=== PATIENT | female | born 1940 | race Caucasian/White ===

== ENCOUNTER 2020-05-06 10:17 | Outpatient (CLI) | payer MEDICARE, SELFPAY ==
[2020-05-06 10:52] LABS: Basophils Percent Auto 0.6 % (0.2-1.2); Eosinophils Absolute Auto 0.2 K/mm3 (0-0.3); Eosinophils Percent Auto 3.8 % (0-4.4); Hemoglobin 14.1 g/dL (12.0-15.0); Immature Granulocyte Absolute 0.01 K/mm3 (0.00-0.031); Immature Granulocyte Percent A 0.2 % (0-0.5); Lymphocytes Absolute Auto 1.48 K/mm3 (0.9-3.2); Lymphocytes Percent Auto 23.7 % (18.3-44.2); Mean Corpuscular HGB Conc 32.8 g/dl (32-36); Mean Corpuscular Hemoglobin 32.3 pg (26-34); Mean Corpuscular Volume 98.6 fl (80-100); Mean Platelet Volume 10.8 fl (7.4-10.4); Monocytes Absolute Auto 0.6 K/mm3 (0.1-0.6); Monocytes Percent Auto 8.8 % (2.6-8.5); Neutrophils Absolute Auto 3.9 K/mm3 (1.3-6.7); Neutrophils Percent Auto 62.9 % (45.5-73.1); Platelet Count Result 193 k/mm3 (150-375); Red Blood Count 4.36 M/mm3 (4.2-5.4); Red Cell Distribution Width 12.7 % (11.5-14.5); White Blood Count 6.2 K/mm3 (4.5-10.0)
[2020-05-06 11:02] LABS: Add Urine Microscopic? YES; Appearance Urine Cloudy (Clear); Bacteria Urine Trace /hpf; Bilirubin Urine Negative (Negative); Blood Urine 1+ (Negative); Color Urine Yellow (Yellow); Glucose Urine UA Negative (Negative); Ketones Urine Negative (Negative); Leukocyte Esterase Ur 2+ LEU/UL (NEGATIVE); Nitrate Urine Negative (Negative); Protein Urine Negative (Negative); RBC Urine 0-2 /hpf (0-2); Specific Grav Ur 1.018 (1.001-1.035); Squamous Epithelial Cell Urine Many /hpf (Few); Urobilinogen Urine Negative mg/dL (<2.0)
[2020-05-06 11:03] LABS: Hemoglobin A1C 5.6 % (<5.7)
[2020-05-06 11:04] LABS: Alanine Aminotransferase 22 U/L (4-35); Alkaline Phosphatase 84 U/L (38-126); Anion Gap 5 mmol/L (8-16); Aspartate Amino Transferase 26 U/L (14-36); Bilirubin,Total 0.4 mg/dL (0.2-1.3); Blood Urea Nitrogen 18 mg/dL (7-17); Calcium 9.1 mg/dL (8.4-10.2); Carbon Dioxide 28 mmol/L (22-30); Chloride 106 mmol/L (98-107); Cholesterol 153 mg/dL (0-200); Estimated Glomerular Filt Rate 54; Glucose 92 mg/dL (65-105); HDL Direct 43 mg/dL; Potassium 4.3 mmol/L (3.4-5.0); Sodium 139 mmol/L (137-145); Triglycerides 124 mg/dL (<150)
[2020-05-06 11:15] LABS: LDL Cholesterol Direct 72 mg/dL
[2020-05-06 11:50] LABS: Vitamin D 25 Hydroxy 41.9 ng/mL
== END 2020-05-06 10:18 | disposition home or self-care (01) ==
LOC: ANHLAB 10:25
PROVIDERS: PCP Internal Medicine; Visit Provider Internal Medicine
DX: E55.9 Vitamin D deficiency, unspecified (principal); E78.2 Mixed hyperlipidemia; R73.03 Prediabetes; Z79.899 Other long term (current) drug therapy; Z78.0 Asymptomatic menopausal state
CPT/HCPCS: 36415; 80053; 80061; 81001; 82306; 83036; 84443; 85025

== ENCOUNTER 2020-05-12 08:43 | Outpatient (CLI) | payer MEDICARE, SELFPAY ==
[2020-05-12 09:11] LABS: Add Urine Microscopic? YES; Appearance Urine Clear (Clear); Bacteria Urine Trace /hpf; Bilirubin Urine Negative (Negative); Blood Urine 1+ (Negative); Color Urine Yellow (Yellow); Glucose Urine UA Negative (Negative); Ketones Urine Negative (Negative); Leukocyte Esterase Ur Trace LEU/UL (Negative); Mucus Urine Rare /lpf; Nitrate Urine Negative (Negative); Protein Urine Negative (Negative); RBC Urine 0-2 /hpf (0-2); Specific Grav Ur 1.019 (1.001-1.035); Squamous Epithelial Cell Urine Many /hpf (Few); Urobilinogen Urine Negative mg/dL (<2.0)
== END 2020-05-12 08:44 | disposition home or self-care (01) ==
LOC: ANHLAB 08:45
PROVIDERS: PCP Internal Medicine; Visit Provider Internal Medicine
DX: R31.29 Other microscopic hematuria (principal)
CPT/HCPCS: 81001; 87086; 87088

== ENCOUNTER 2020-05-17 13:50 | Outpatient (CLI) | payer MEDICARE, SELFPAY ==
[2020-05-17 14:44] LABS: Add Urine Microscopic? YES; Appearance Urine Clear (Clear); Bacteria Urine Trace /hpf; Bilirubin Urine Negative (Negative); Blood Urine Negative (Negative); Color Urine Yellow (Yellow); Glucose Urine UA Negative (Negative); Ketones Urine Negative (Negative); Leukocyte Esterase Ur Trace LEU/UL (NEGATIVE); Mucus Urine Rare /lpf; Nitrate Urine Negative (Negative); Protein Urine Negative (Negative); Specific Grav Ur 1.027 (1.001-1.035); Squamous Epithelial Cell Urine Many /hpf (Few); Urobilinogen Urine Negative mg/dL (<2.0)
== END 2020-05-17 13:51 | disposition home or self-care (01) ==
LOC: ANHLAB 13:53
PROVIDERS: PCP Internal Medicine; Visit Provider Internal Medicine
DX: R31.29 Other microscopic hematuria (principal)
CPT/HCPCS: 81001

== ENCOUNTER 2020-07-21 08:18 | Outpatient (CLI) | payer MEDICARE, SELFPAY ==
--- NOTE | ~2020-07-21 | MM_ITS ---
EXAMINATION: MM screening davis BI w cherelle HISTORY: Screening mammogram TECHNIQUE: Craniocaudal and mediolateral oblique 3-D tomosynthesis images were obtained and synthetic 2-D images were generated. CAD analysis was submitted and interpreted. COMPARISON: 04/24/2019, 03/12/2018 bilateral digital screening mammogram examinations BREAST PARENCHYMAL COMPOSITION: There are scattered areas of fibroglandular density. FINDINGS: There are scattered occasional benign calcifications. A new 5 mm spiculated opacity is suggested posteriorly in the lower inner left breast (craniocaudal T omosynthesis image 23/70); diagnostic left mammogram is recommended, with ultrasound if appropriate. Otherwise there is no evidence of suspicious mass, calcification, or architectural distortion to sugg est malignancy in either breast. There has been no other suspicious interval change. IMPRESSION: 1. Suggestion of new 5 mm asymmetric spiculated opacity in posterior lower inner left breast 2. Diagnostic left mammogram is recommended, with ultrasound if required BI-RADS Category 0: Incomplete: Needs additional imaging evaluation. Reviewed, dictated and finalized at location A. [employer] IMPRESSION: 1. Suggestion of new 5 mm asymmetric spiculated opacity in posterior lower inne r left breast 2. Diagnostic left mammogram is recommended, with ultrasound if required BI-RADS Category 0: Incomplete: Needs additional imaging evaluation.
== END 2020-07-21 08:19 | disposition home or self-care (01) ==
LOC: ANHIMG 08:22
PROVIDERS: PCP Internal Medicine; Visit Provider Internal Medicine
DX: Z12.31 Encounter for screening mammogram for malignant neoplasm of breast (principal); R92.8 Other abnormal and inconclusive findings on diagnostic imaging of breast
CPT/HCPCS: 77063; 77067

== ENCOUNTER 2020-09-14 11:28 | Outpatient (CLI) | payer MEDICARE, SELFPAY ==
--- NOTE | ~2020-09-14 | MMUS_ITS ---
EXAMINATION: MM diagnostic mammo unilat LT, US breast LT limited HISTORY: Follow-up possible spiculated left breast mass TECHNIQUE: Additional 3-D tomosynthesis images of the left breast were performed and synthetic 2-D im ages were generated. CAD analysis was submitted and interpreted. High resolution Limited left breast ultrasound was performed. COMPARISON: 07/21/2020 BREAST PARENCHYMAL COMPOSITION: Breast composed of scattered areas of fibroglandular density. FINDINGS: MAMMOGRAPHIC FINDINGS: There are no suspicious masses, calcifications or architectural distortion in the left breast to sugg est malignancy. ULTRASOUND: Limited ultrasound of the lower inner quadrant of the left breast: At 9:00, 3 cm from the nipple, the re is an oval hypoechoic mass measuring 4 mm without significant posterior features or internal vascu larity. IMPRESSION: 1. Probable benign 4 mm left breast mass at 9:00, 3 cm from the nipple identified by ultrasound. 2. Recommend 6 month follow-up left breast ultrasound BI-RADS category 3, probably benign findings. Reviewed, dictated and finalized at location A. [employer] IMPRESSION: 1. Probable benign 4 mm left breast mass at 9:00, 3 cm from the nipple identifi ed by ultrasound. 2. Recommend 6 month follow-up left breast ultrasound BI-RADS category 3, probably benign findings.
== END 2020-09-14 11:29 | disposition home or self-care (01) ==
LOC: ANHIMG 11:28
PROVIDERS: PCP Internal Medicine; Visit Provider Internal Medicine
DX: R92.8 Other abnormal and inconclusive findings on diagnostic imaging of breast (principal)
CPT/HCPCS: 76642; 77065

== ENCOUNTER 2021-03-15 11:38 | Outpatient (CLI) | payer MEDICARE, SELFPAY ==
--- NOTE | ~2021-03-15 | MMUS_ITS ---
EXAMINATION: MM diagnostic davis LT w cherelle, US breast LT limited HISTORY: Six-month follow-up of probable benign 4 mm left breast mass at 9:00 TECHNIQUE: ML, MLO and craniocaudal full field and spot 3-D tomosynthesis images of the left breast w ere performed and synthetic 2-D images were generated. CAD analysis was submitted and interpreted. Hi gh resolution targeted 9:00 left breast ultrasound was performed. COMPARISON: 09/14/2020 diagnostic left mammogram and limited left breast ultrasound 07/21/2020 bilateral digital screening mammogram BREAST PARENCHYMAL COMPOSITION: There are scattered areas of fibroglandular density. FINDINGS: MAMMOGRAPHIC FINDINGS: No suspicious mass, architectural distortion, malignant calcification, skin thickening or retraction or significant new or developing density of the left breast is evident. There is minimal benign calci fication. ULTRASOUND: There is diminished size of the previously reported 9:00 lesion, previously measuring 4 mm, currently 2.7 x 2.5 x 2 mm. The lesion is sonolucent. No internal vascularity or suspicious shadowing. IMPRESSION: 1. No mammographic evidence of malignancy 2. Routine mammographic screening is recommended BI-RADS Category 2: Benign finding(s). Reviewed, dictated and finalized at location A. IMPRESSION: 1. No mammographic evidence of malignancy 2. Routine mammographic screening is recommended BI-RADS Category 2: Benign finding(s).
== END 2021-03-15 11:39 | disposition home or self-care (01) ==
LOC: ANHIMG 11:40
PROVIDERS: PCP Internal Medicine; Visit Provider Internal Medicine
DX: N63.25 Unspecified lump in the left breast, overlapping quadrants (principal)
CPT/HCPCS: 76642; 77061; 77065; G0279

== ENCOUNTER 2021-05-04 08:22 | Outpatient (CLI) | payer MEDICARE, SELFPAY ==
[2021-05-04 08:43] LABS: Basophils Percent Auto 0.7 % (0.2-1.2); Eosinophils Absolute Auto 0.1 K/mm3 (0-0.3); Eosinophils Percent Auto 1.7 % (0-4.4); Hematocrit 43.2 % (37.0-47.0); Hemoglobin 13.6 g/dL (12.0-15.0); Immature Granulocyte Absolute 0.01 K/mm3 (0.00-0.031); Immature Granulocyte Percent A 0.2 % (0-0.5); Lymphocytes Absolute Auto 1.85 K/mm3 (0.9-3.2); Lymphocytes Percent Auto 31.9 % (18.3-44.2); Mean Corpuscular HGB Conc 31.5 g/dl (32-36); Mean Corpuscular Hemoglobin 31.9 pg (26-34); Mean Corpuscular Volume 101.2 fl (80-100); Mean Platelet Volume 10.7 fl (7.4-10.4); Monocytes Absolute Auto 0.7 K/mm3 (0.1-0.6); Monocytes Percent Auto 11.2 % (2.6-8.5); Neutrophils Absolute Auto 3.2 K/mm3 (1.3-6.7); Neutrophils Percent Auto 54.3 % (45.5-73.1); Platelet Count Result 200 k/mm3 (150-375); Red Blood Count 4.27 M/mm3 (4.2-5.4); Red Cell Distribution Width 13.1 % (11.5-14.5); White Blood Count 5.8 K/mm3 (4.5-10.0)
[2021-05-04 09:00] LABS: Alanine Aminotransferase 19 U/L (4-35); Albumin Level 4.1 g/dL (3.5-5.1); Alkaline Phosphatase 72 U/L (38-126); Anion Gap 6 mmol/L (8-16); Aspartate Amino Transferase 27 U/L (14-36); Bilirubin,Total 0.7 mg/dL (0.2-1.3); Blood Urea Nitrogen 22 mg/dL (7-17); Calcium 9.3 mg/dL (8.4-10.2); Carbon Dioxide 29 mmol/L (22-30); Chloride 107 mmol/L (98-107); Cholesterol 148 mg/dL (0-200); Estimated Glomerular Filt Rate 48; Glucose 103 mg/dL (65-110); HDL Direct 49 mg/dL; Potassium 4.1 mmol/L (3.4-5.0); Sodium 142 mmol/L (137-145); Triglycerides 85 mg/dL (<150)
[2021-05-04 09:11] LABS: LDL Cholesterol Direct 69 mg/dL
[2021-05-04 10:34] LABS: Vitamin D 25 Hydroxy 41.5 ng/mL
[2021-05-04 10:43] LABS: Creatinine Urine 297.1 mg/dL
[2021-05-04 10:46] LABS: MALB Creatinine Ratio 5.1 mg/g (0-30); Microalbumin Urine Random 15.3 mg/L (0-16.7)
== END 2021-05-04 08:23 | disposition home or self-care (01) ==
LOC: ANHLAB 08:26
PROVIDERS: PCP Internal Medicine; Visit Provider Internal Medicine
DX: R73.03 Prediabetes (principal); E78.2 Mixed hyperlipidemia; E55.9 Vitamin D deficiency, unspecified
CPT/HCPCS: 36415; 80053; 80061; 82043; 82306; 84443; 85025

== ENCOUNTER 2021-07-20 01:02 | Day surgery (SDC) | payer MEDICARE, SELFPAY ==
[2021-07-01 14:14] VITALS: BMI 33.4
--- NOTE | 2021-07-20 07:22 | P.PNAN_ITS ---
Anes - Initial Pre Proc Eval Procedure: Operation Date: 07/20/21 09:15 Proposed Procedures p Screening Colonoscopy - Alex Parmar MD Date/Time: 07/20/21 07:22 Surgeon: Alex Parmar MD Pre Op Diagnosis: neoplasm screening Patient Data Age: 81 Gender: F Height: 1.68 m Weight: 94 kg Allergies Allergy/AdvReac Type Severity Reaction Status Date / Time bacitracin Allergy Mild RASH AND Verified 07/20/21 07:53 ITCHING gramicidin D Allergy Mild RASH AND Verified 07/20/21 07:53 ITCHING neomycin Allergy Mild RASH AND Verified 07/20/21 07:53 ITCHING polymyxin B Allergy Mild RASH AND Verified 07/20/21 07:53 ITCHING adhesive Allergy Unknown RASH Verified 07/20/21 07:53 latex Allergy Unknown Rash Verified 07/20/21 07:53 Home Medications Medication Instructions Recorded Confirmed Type aspirin 81 mg tablet,delayed 81 mg PO DAILY 06/30/19 07/01/21 History release atorvastatin 10 mg tablet 10 mg PO DAILY #90 tablet 03/14/21 07/01/21 Rx Patient hx anesthesia problems: none Family hx anesthesia problems: none Results Review: All pre-operative results and documents have been reviewed as part of the pre-operative evaluation. [facility] Past Medical History Medical History (Updated 07/20/21 @ 07:24 by Francisco Ruvalcaba DO) Mixed hyperlipidemia PONV (postoperative nausea and vomiting) Surgical History Surgical History (Updated 07/20/21 @ 07:24 by Francisco Ruvalcaba DO) History of appendectomy History of hysterectomy Family History Family History (Updated 08/30/16 @ 09:37 by DOCTOR UNKNOWN) Mother Patient's mother is in good health, Onset Age: 100 Father Patient's father is in good health, Onset Age: 85 Social History Social History (Updated 05/13/21 @ 07:48 by RAMIRO Pink) Smoking packs per day: 0.50 Smoking cigarettes per day: 10.0 Years smoked: 2 Smoking pack-years: 1.00 Smoking status: Never smoker Second hand tobacco smoke exposure: Yes Smoking end date: 08/20/1964 Alcohol intake: current Alcohol use details: socially Substance use: never Substance use type: does not use Anes - Eval Final PreProcedure Day of Procedure 07/20/21 07:22 Patient weight: obese Heart: regular rate and rhythm Lungs: clear to auscultation and normal air movement Airway: Mallampati scale class II Neurological: alert and oriented Last oral intake: >/= 8 hours ASA classification: II Emergent: no Anesthetic plan: proceed Anesthesia type and monitoring: general GIVS and standard monitoring Results Review: All pre-operative results and documents have been reviewed as part of the pre-operative evaluation. Informed Consent: The patient's anesthetic plan and its attendant risks and benefits were discussed with the patient/family/POA. Questions were solicited and answers provided to the satisfaction of the patient/family/POA.
[2021-07-20 07:54] VITALS: BP 139/72; PULSE 74; RESP 18; TEMP 36.4; O2SAT 97
[2021-07-20] MEDS: LACTATED RINGERS 1,000 ML 150 ML IV CONT (08:12)
--- NOTE | 2021-07-20 08:50 | PM.HPGS ---
History of Present Illness History of Present Illness Consent: Risks, benefits, and alternatives have been discussed and questions answered. Patient agrees to proceed with procedure. Chief complaint: neoplasm screening Narrative: Maggy Story is a 81 year old female here for screening colonoscopy, last one 2010 Review of Systems Constitutional: Constitutional: Denies headache(s) and Denies weakness Eyes: Eyes: Denies blurry vision ENT: Reports Normal hearing present, Denies headache(s) and Denies neck pain Cardiovascular: Cardiovascular: Denies chest pain and Denies dyspnea Respiratory: Respiratory: Denies dyspnea Gastrointestinal: Gastrointestinal: Reports no additional gastrointestinal complaints Genitourinary: Genitourinary: Denies dysuria Musculoskeletal: Musculoskeletal: Denies neck pain Integumentary/Breasts: Skin/Breast: Denies dry skin Neurologic: Reports Normal hearing present, Denies headache(s) and Denies weakness Psychiatric: Psychiatric: Denies anxiety Endocrine: Endocrine: Denies change in body appearance Hematologic/Lymphatic: Hematologic/Lymphatic: Denies easy bleeding Allergic/Immunologic: Allergic/Immunologic: Denies urticaria PMFSH Past Medical History Medical History (Updated 07/20/21 @ 07:24 by Francisco Ruvalcaba DO) Mixed hyperlipidemia PONV (postoperative nausea and vomiting) Surgical History Surgical History (Updated 07/20/21 @ 07:24 by Francisco Ruvalcaba DO) History of appendectomy History of hysterectomy Family History Family History (Updated 08/30/16 @ 09:37 by DOCTOR UNKNOWN) Mother Patient's mother is in good health, Onset Age: 100 Father Patient's father is in good health, Onset Age: 85 Social History Social History (Updated 05/13/21 @ 07:48 by Erica Aguirre [facility]) Smoking packs per day: 0.50 Smoking cigarettes per day: 10.0 Years smoked: 2 Smoking pack-years: 1.00 Smoking status: Never smoker Second hand tobacco smoke exposure: Yes Smoking end date: 08/20/1964 Alcohol intake: current Alcohol use details: socially Substance use: never Substance use type: does not use Meds Home Medications and Allergies Home Medications Medication Instructions Recorded Confirmed Type aspirin 81 mg tablet,delayed 81 mg PO DAILY 06/30/19 07/01/21 History release atorvastatin 10 mg tablet 10 mg PO DAILY #90 tablet 03/14/21 07/01/21 Rx Allergies Allergy/AdvReac Type Severity Reaction Status Date / Time bacitracin Allergy Mild RASH AND Verified 07/20/21 07:53 ITCHING gramicidin D Allergy Mild RASH AND Verified 07/20/21 07:53 ITCHING neomycin Allergy Mild RASH AND Verified 07/20/21 07:53 ITCHING polymyxin B Allergy Mild RASH AND Verified 07/20/21 07:53 ITCHING adhesive Allergy Unknown RASH Verified 07/20/21 07:53 latex Allergy Unknown Rash Verified 07/20/21 07:53 Vital Signs Vital Signs - 24 hr 07/20/21 07:54 Temperature 97.6 F Pulse Rate 74 Respiratory Rate 18 Blood Pressure 139/72 Pulse Oximetry 97 Exam Const: General: comfortable and no acute distress HENMT: General nose exam: Normal nares present Eyes: General: appearance normal, both eyes and all related structures Neck: Neck: no JVD Resp: Auscultation: clear to auscultation bilaterally Cardio: Rate: regular rate Rhythm: regular rhythm GI: Inspection: non-distended GI Palp: Yes Soft to palpation Skin: General skin exam: normal color Neuro: General: gait normal Speech: normal speech Extrem: General: normal to inspection Psych: Mental Status: mental status grossly normal Assessment and Plan Assessment and plan (1) Encounter for screening colonoscopy: Code(s): Z12.11 - Encounter for screening for malignant neoplasm of colon Status: Acute Assessment and Plan: colonoscopy
[2021-07-20 09:08] VITALS: BP 95/44; PULSE 64; RESP 16; O2SAT 97
[2021-07-20 09:18] VITALS: BP 115/57; PULSE 66; RESP 17; O2SAT 99
[2021-07-20 09:28] VITALS: BP 110/61; PULSE 59; RESP 17; O2SAT 100
== END 2021-07-20 09:44 | disposition home or self-care (01) ==
PROVIDERS: PCP Internal Medicine; Visit Provider Internal Medicine Gastroenterology
PROC: 0DJD8ZZ Inspection of Lower Intestinal Tract, Via Natural or Artificial Opening Endoscopic (ICD-10-PCS; CPT 45378; principal; 2021-07-20 09:15)
DX: Z12.11 Encounter for screening for malignant neoplasm of colon (principal); E78.2 Mixed hyperlipidemia; Z79.82 Long term (current) use of aspirin; E66.9 Obesity, unspecified; Z68.33 Body mass index [BMI] 33.0-33.9, adult; Z87.891 Personal history of nicotine dependence
CPT/HCPCS: G0121; J2704; J7120

== ENCOUNTER 2022-06-12 09:08 | Outpatient (CLI) | payer MEDICARE, SELFPAY ==
--- NOTE | 2022-06-12 | ECG_ITS ---
Measurements Intervals [place] Rate: 61 P: 66 DE: 221 QRS: -27 QRSD: 116 T: 19 QT: 401 QTc: 406 Interpretive Statements SINUS RHYTHM WITH FIRST DEGREE AV BLOCK INFERIOR MYOCARDIAL INFARCTION , PROBABLY OLD BASELINE ARTIFACT ABNORMAL ECG NO PREVIOUS ECG AVAILABLE FOR COMPARISON Electronically Signed On 06-12-2022 16:11:30 CDT by Norris Tee M.D.
[2022-06-12 10:11] LABS: Anion Gap 9 mmol/L (8-16); Blood Urea Nitrogen 25 mg/dL (7-17); Calcium 9.2 mg/dL (8.4-10.2); Carbon Dioxide 28 mmol/L (22-30); Chloride 104 mmol/L (98-107); Estimated Glomerular Filt Rate 48; Glucose 104 mg/dL (65-110); Potassium 4.3 mmol/L (3.4-5.0); Sodium 141 mmol/L (137-145)
== END 2022-06-12 09:09 | disposition home or self-care (01) ==
PROVIDERS: Visit Provider Orthopaedic Surgery
DX: Z01.818 Encounter for other preprocedural examination (principal); R94.31 Abnormal electrocardiogram [ECG] [EKG]
CPT/HCPCS: 36415; 80048; 93005

== ENCOUNTER 2023-11-06 11:57 | Emergency (ER) | payer MEDICARE, SELFPAY ==
[2023-11-06] VITALS (24 sets, daily range): BP systolic 113–169; BP diastolic 58–90; PULSE 56–80; RESP 10–21; TEMP 36.3–36.6; O2SAT 94–100
--- NOTE | ~2023-11-06 | CT_ITS ---
EXAMINATION: CTA chest PE protocol DATE: 11/06/2023 13:23 INDICATION: Dyspnea on exertion. Cough. Dizziness. Elevated d-dimer. TECHNIQUE: Computed tomography angiography (CTA) of the chest was performed with 100 mL Omnipaque-350 intravenous contrast timed to evaluate the pulmonary arteries. Coronal maximum intensity projection 3D-reconstructions were created by the technologist. Automated exposure control and iterative reconst ruction technique were employed. Exam dose: 287.56 mGy-cm total exam DLP. COMPARISON: 11/06/2023 portable AP chest FINDINGS: There is diagnostic contrast enhancement of the pulmonary arteries and no evidence of pulmo nary embolism. No thoracic aortic aneurysm or dissection is evident. Heart size is within normal range. No pericardial or pleural effusion. No hilar or mediastinal mass lesion or lymphadenopathy. Occasional scattered focal areas of peripheral honeycombing are noted in the lungs. Minimal discoid a telectasis or scarring at the base of the right lower lobe posteromedially. Right lower lobe calcifie d pulmonary granuloma. No pulmonary infiltrate or consolidation or suspicious pulmonary mass lesion is noted. Normal morphology of the adrenal glands. Small sliding hiatal hernia. Degenerative changes of the lower cervical, thoracic and upper lumbar and included spine. IMPRESSION: No evidence of pulmonary embolism Reviewed, dictated and finalized at Location A. Reviewed, dictated and finalized at location L.
--- NOTE | ~2023-11-06 | XR_ITS ---
XR chest 1V portable DATE: 11/06/2023 12:26 INDICATION: Dyspnea on exertion, cough TECHNIQUE: Portable AP chest on 11/06/2023 at 1231 hours COMPARISON: 10/18/2009 two-view chest FINDINGS: Heart size appears within normal range considering AP projection. No hilar or mediastinal e nlargement. No pulmonary infiltrate or consolidation, pleural effusion or pulmonary vascular congesti on or pneumothorax is detected. Osteopenia. Dextroscoliosis and degenerative spurring of the thoracic spine. IMPRESSION: No active cardiac pulmonary disease Reviewed, dictated and finalized at location L.
--- NOTE | 2023-11-06 12:17 | ECG_ITS ---
Measurements Intervals [place] Rate: 78 P: 30 AR: 198 QRS: -14 QRSD: 104 T: 2 QT: 382 QTc: 438 Interpretive Statements SINUS RHYTHM LEFT VENTRICULAR HYPERTROPHY POOR R WAVE PROGRESSION, ANTERIOR LEADS MINIMAL Q WAVES- HIGH LATERAL LEADS BORDERLINE T WAVE ABNORMALITY- INFERIOR LEADS BORDERLINE ECG COMPARED TO ECG 06/12/2022 09:37:50 LEFT VENTRICULAR HYPERTROPHY NOW PRESENT Electronically Signed On 11-06-2023 12:51:51 CDT by Juan Holland D.O.
[2023-11-06] MEDS: MAG HYDROX/AL HYDROX/SIMETH 30 ML UDC PO (12:27)
[2023-11-06] MEDS: MECLIZINE HCL 25 MG TABLET PO (12:27)
[2023-11-06] MEDS: FAMOTIDINE 20 MG/2 ML VIAL IV PUSH (12:31)
[2023-11-06] MEDS: SODIUM CHLORIDE 0.9% IV 1,000 ML 999 ML IV CONT (12:31)
--- NOTE | 2023-11-06 12:33 | ED.GENADULT ---
HPI - General Adult General Chief complaint: Shortness of Breath/Dyspnea Stated complaint: chest pain Time Seen by Provider: 11/06/23 11:58 History of Present Illness HPI narrative: This is an 83 old female presenting with dyspnea on exertion x1 week. Patient says she has felt more short of breath usual last week. Yesterday she had subjective fever chills. She also has trouble lying flat at night. She denies chest pain, nausea vomiting diarrhea, lower extremity edema or abdominal pain. She had an echocardiogram performed last week for preop clearance showed a normal EF and indeterminate diastolic function. patient is also complaining of indigestion over the last 1 day. Patient also had an episode of vertigo earlier today that was triggered by head movement. Patient has a history of vertigo and takes meclizine as needed. She denies double vision dysarthria dysphagia loss of coordination or any other neurologic deficits. Patient was diagnosed with the UTI last week and started on Bactrim. Her symptoms had started before she began the Bactrim Related Data Home Medications Medication Instructions Recorded Confirmed aspirin 81 mg tablet,delayed 81 mg PO DAILY 06/30/19 11/06/23 release (Aspir-) sulfamethoxazole 800 1 tablet PO BID 11/06/23 11/06/23 mg-trimethoprim 160 mg tablet Allergies Allergy/AdvReac Type Severity Reaction Status Date / Time bacitracin Allergy Mild RASH AND Unverified 11/06/23 12:13 ITCHING gramicidin D Allergy Mild RASH AND Verified 11/06/23 12:13 ITCHING neomycin Allergy Mild RASH AND Verified 11/06/23 12:13 ITCHING polymyxin B Allergy Mild RASH AND Verified 11/06/23 12:13 ITCHING adhesive Allergy Unknown RASH Verified 11/06/23 12:13 latex Allergy Unknown Rash Verified 11/06/23 12:13 PMFSH Past Medical History Medical History Mixed hyperlipidemia PONV (postoperative nausea and vomiting) Surgical History Surgical History History of appendectomy History of hysterectomy Family History Family History Mother Patient's mother is in good health, Onset Age: 100 Father Patient's father is in good health, Onset Age: 85 Social History Social History Smoking packs per day: 0.50 Smoking cigarettes per day: 10.0 Years smoked: 2 Smoking pack-years: 1.00 Smoking status: Never smoker Second hand tobacco smoke exposure: Yes Smoking end date: 08/20/1964 Alcohol intake: current Alcohol use details: socially Substance use: never Substance use type: does not use Exam Narrative: APPEARANCE: No apparent distress. Head: atraumatic. EYES: EOMI, NOSE: Atraumatic NECK: Trachea midline RESPIRATORY: No increased rate of breathing clear to auscultation, saturating well room air CARDIOVASCULAR: RRR, no periphera edema ABDOMINAL: Non-distended, soft nontender MUSCULOSKELETAl: No obvious deformities NEURO: Alert. Cranial nerves 2-12 grossly intact. Sensation light touch, motor function cerebellar function intact for 4 extremities. Gait exam was normal. SKIN:: Warm, dry. Normal color PSYCHIATRIC: Normal affect Course Vital Signs Vital signs: Vital Signs Temperature 97.3 F L 11/06/23 12:02 Pulse Rate 79 11/06/23 12:02 Respiratory Rate 18 11/06/23 12:02 Blood Pressure 139/68 11/06/23 12:02 Pulse Oximetry 98 11/06/23 12:02 Oxygen Delivery Room Air 11/06/23 12:02 Temperature 97.3 F L 11/06/23 12:02 Pulse Rate 63 11/06/23 14:15 Respiratory Rate 11 L 11/06/23 14:00 Blood Pressure 137/63 11/06/23 14:00 Pulse Oximetry 99 11/06/23 14:00 Oxygen Delivery Room Air 11/06/23 12:10 Medical Decision Making [facility] Narrative Medical decision making narrative: -Course:
[2023-11-06 12:39] LABS: Basophils Absolute Auto 0.04 K/mm3 (0.00-0.10); Basophils Percent Auto 0.5 % (0.0-1.0); Eosinophils Absolute Auto 0.07 K/mm3 (0.02-0.50); Eosinophils Percent Auto 0.9 % (1.0-6.0); Hematocrit 39.3 % (35.0-42.0); Hemoglobin 12.9 g/dL (11.7-13.8); Immature Granulocyte Absolute 0.02 K/mm3 (0.00-0.00); Immature Granulocyte Percent A 0.3 % (0.0-0.0); Lymphocytes Absolute Auto 1.36 K/mm3 (1.10-4.50); Lymphocytes Percent Auto 18.2 % (18.0-42.0); Mean Corpuscular HGB Conc 32.8 g/dL (32-36); Mean Corpuscular Hemoglobin 31.5 pg (27.0-31.0); Mean Corpuscular Volume 96.1 fL (78.0-102.0); Mean Platelet Volume 10.4 fl (9.2-11.8); Monocytes Absolute Auto 0.61 K/mm3 (0.10-0.90); Monocytes Percent Auto 8.2 % (2.0-11.0); Neutrophils Absolute Auto 5.37 K/mm3 (1.70-7.20); Neutrophils Percent Auto 71.9 % (50.0-70.0); Platelet Count Result 223 K/mm3 (150-420); Red Blood Count 4.09 M/mm3 (4.20-5.40); Red Cell Distribution Width 12.9 % (11.6-14.4); White Blood Count 7.5 K/mm3 (4.8-10.8)
[2023-11-06 13:02] LABS: NT Pro B Type Natriuretic Pept 234 pg/mL (0-450)
[2023-11-06 13:02] LABS: Alanine Aminotransferase 25 U/L (14-59); Albumin Level 3.4 g/dL (3.4-5.0); Alkaline Phosphatase 75 U/L (46-116); Anion Gap 10 mmol/L (8-16); Aspartate Amino Transferase 20 U/L (15-37); Bilirubin,Total 0.3 mg/dL (0.00-1.00); Blood Urea Nitrogen 23 mg/dL (7-18); Carbon Dioxide 26 mmol/L (21-32); Chloride 105 mmol/L (98-108); Estimated CRCL calculation 27 ml/min; Estimated Glomerular Filt Rate 29; Glucose 98 mg/dL (70-99); Lipase 41 U/L (16-77); Osmolality Calculated 295 mOsm/kg (285-295); Potassium 4.6 mmol/L (3.5-5.1); Sodium 141 mmol/L (136-145); Total Protein 7.5 g/dL (6.4-8.2); Troponin I 5.7 ng/L (0.00-60.4)
[2023-11-06 13:03] LABS: D Dimer 1.39 mg/L (0.19-0.50)
[2023-11-06 13:14] LABS: Influenza A QL RT-PCR Negative (Negative); Influenza B QL RT-PCR Negative (Negative); RSV RNA, RT-PCR Negative (Negative); SARS-CoV-2 RNA PCR Negative (Negative)
[2023-11-06 13:27] LABS: Add Urine Microscopic? YES; Appearance Urine Sl Cloudy (Clear); Bilirubin Urine Negative (Negative); Blood Urine 2+ (Negative); Color Urine Yellow (Yellow); Glucose Urine UA Negative (Negative); Ketones Urine Negative (Negative); Leukocyte Esterase Ur 2+ LEU/UL (Negative); Nitrate Urine Negative (Negative); Protein Urine Negative (Negative); Specific Grav Ur >= 1.030 (1.010-1.020); Squamous Epithelial Cell Urine Moderate /hpf (Few); Urobilinogen Urine 0.2 mg/dL (0.2-1.0)
[2023-11-06 13:28] LABS: Bacteria Urine 1+ /hpf; Mucus Urine Few /lpf
[2023-11-06 15:17] LABS: Troponin I 6.8 ng/L (0.00-60.4)
== END 2023-11-06 15:30 | disposition home or self-care (01) ==
PROVIDERS: Emergency Provider Emergency Medicine
DX: R42 Dizziness and giddiness (principal); R06.00 Dyspnea, unspecified; Z79.82 Long term (current) use of aspirin; E78.2 Mixed hyperlipidemia; N39.0 Urinary tract infection, site not specified; Z20.822 Contact with and (suspected) exposure to COVID-19
CPT/HCPCS: 36415; 71045; 71275; 80053; 81001; 83690; 83880; 84484; 85025; 85380; 87086; 87637; 93005; 96361; 96374; 99284; A9270; J7030; Q9967

== ENCOUNTER 2023-12-31 09:28 | Outpatient (RCR) | payer MEDICARE, SELFPAY ==
--- NOTE | 2023-12-31 10:49 | OPREHPOC ---
Outpatient Therapy Plan of Care This is a Multidisciplinary Plan of Care that may contain components documented by all disciplines (PT, OT, and ST.) PT Problem 1 PT Problem #1 Knowledge Deficit PT Goal 1 Goal patient to demonstrate independence with EHP Target Visit 6 PT Problem 2 PT Problem #2 Pain PT Goal 1 Goal 1. Patient reports highest pain at 2/10 2. Patient to report ability to sleep with no disturbance due to L knee pain Target Visit 12 PT Problem 3 PT Problem #3 Impaired Range of Motion PT Goal 1 Goal Patient to demonstrate 0-120 deg of L knee active ROM to return to ambulation at PLOF Target Visit 12 PT Problem 4 PT Problem #4 Impaired Strength PT Goal 1 Goal Patient to demonstrate 5/5 strength of the L knee to return to standing up from chair at completing house hold tasks at PLOF Target Visit 12 PT Problem 5 PT Problem #5 Impaired Functional Mobil PT Goal 1 Goal 1. Patient to demonstrate <30% disability on LEFS 2. Patient to demonstrate ability to ambulate 1000 ' during 6 min walk test without AD 3. Patient to report ability to get into and out of the car with no L knee pain Target Visit 12
--- NOTE | 2023-12-31 10:49 | PTOPEVAL1 ---
Assessment and note entered by Kamila Valdez DPT Evaluation Information Assessment Status Evaluation Diagnosis L knee pain Onset 12/06/23 Subjective Information patient reports she had a L TKA on 12/06/23. she reports she used the [employer] bike 5x daily for 3 weeks following surgery as well performing exercises given to her. she presents to PT today with use of FWW but reports she did not use an AD prior. she reports she is no longer using any pain meds. she is driving. she does report difficulty sleeping, getting into and out of the car, and ambulating prolonged distances. she reports her daughter is staying with her right now but prior she was doing house work, yard work and walks her dogs about 2-3 miles a day. she reports she returns to [place] on 01/07/24. Reported Pain Level Pain Score 0: Self Report Assessment PT Clinical Summary Ms. Story is a 83 year old female who presents to PT with L knee pain s/p L TKA. She demonstrates decreased L knee active ROM, decreased L knee strength and impaired gait mechanics limiting her ability to get into car, sleep, complete house hold tasks and walk her dogs. She would benefit from skilled PT to address impairments and return to PLOF. Plan of Care Interventions Electrical Stimulation,Gait Training,Hot Pack/Cold Pack,Manual Therapy,Neuro Re-education,Patient/ Caregiver Educati,Therapeutic Activities, Therapeutic Exercise PT Services Indicated Yes Treatment Frequency and 3x weekly for 12 visits Duration These treatments will address the objective and functional deficits as defined above. The patient will be advanced safely and appropriately in order for the patient to progress towards his/her prior level of function. Additional exercises will be introduced and as well as a comprehensive home exercise program upon discharge, if needed, ?to ensure carryover of functional gains achieved in the clinic. This treatment plan has been reviewed and agreement upon by the patient.
--- NOTE | 2024-01-25 15:57 | OPREHPOC ---
Outpatient Therapy Plan of Care This is a Multidisciplinary Plan of Care that may contain components documented by all disciplines (PT, OT, and ST.) PT Problem 1 PT Problem #1 Knowledge Deficit PT Goal 1 Goal patient to demonstrate independence with EHP Target Visit 6 Progress Met PT Problem 2 PT Problem #2 Pain PT Goal 1 Goal 1. Patient reports highest pain at 2/10 2. Patient to report ability to sleep with no disturbance due to L knee pain Target Visit 12 Progress Partially Met PT Problem 3 PT Problem #3 Impaired Range of Motion PT Goal 1 Goal Patient to demonstrate 0-120 deg of L knee active ROM to return to ambulation at PLOF Target Visit 12 PT Problem 4 PT Problem #4 Impaired Strength PT Goal 1 Goal Patient to demonstrate 5/5 strength of the L knee to return to standing up from chair at completing house hold tasks at PLOF Target Visit 12 PT Problem 5 PT Problem #5 Impaired Functional Mobil PT Goal 1 Goal 1. Patient to demonstrate <30% disability on LEFS 2. Patient to demonstrate ability to ambulate 1000 ' during 6 min walk test without AD 3. Patient to report ability to get into and out of the car with no L knee pain Target Visit 12
--- NOTE | 2024-01-25 15:57 | PTOPPROGNS ---
Assessment and note entered by JT File, PT Evaluation Information Assessment Status Progress Diagnosis L knee pain Onset 12/06/23 Subjective Information patient reports she is doing well today. she reports she has little pain in the L knee, and most of it is located along the inside of the L knee. she reports she has been working on chair slide knee bends at home. she uses no AD to ambulate. Assessment PT Clinical Summary mrs. barclay presents to skilled PT for her 10th skilled therapy visit. she presents with little pain in the L knee today. she displays edema still in the L knee, and deficits in L knee arom. however, her rom is significantly improved since her initial evaluation. she is ambulating without an AD at all times. she would benefit from finishing out the last 2 visits on her current POC to achieve her remaining objective/functional goals to return to prior level functional activity performance/quality of life. Plan of Care Interventions Electrical Stimulation,Gait Training,Hot Pack/Cold Pack,Manual Therapy,Neuro Re-education,Patient/ Caregiver Educati,Therapeutic Activities, Therapeutic Exercise PT Services Indicated Yes Treatment Frequency and continue skilled PT per initial POC Duration These treatments will address the objective and functional deficits as defined above. The patient will be advanced safely and appropriately in order for the patient to progress towards his/her prior level of function. Additional exercises will be introduced and as well as a comprehensive home exercise program upon discharge, if needed, ?to ensure carryover of functional gains achieved in the clinic. This treatment plan has been reviewed and agreement upon by the patient.
--- NOTE | 2024-01-30 11:09 | PTOPPROG ---
Assessment and note entered by Vic Yanes Evaluation Information Assessment Status Progress Diagnosis L knee pain Onset 12/06/23 Subjective Information Pt. reports she is doing better and has returned to driving and is walking without an AD. She states that she is still having difficulty with bending her knee. She states that she would like to be able to continue to improve her knee bend to be able to improve her ability to squat Assessment PT Clinical Summary Pt. has demonstrated progress regarding ROM, strength and functional mobility. Despite her progress she continues to be limited in flexion ROM. Continued skilled PT is indicated in order to continue to improve ROM to allow for improved functional mobility. Plan of Care Interventions Electrical Stimulation,Gait Training,Hot Pack/Cold Pack,Manual Therapy,Patient/Caregiver Educati, Therapeutic Activities,Therapeutic Exercise PT Services Indicated Yes Treatment Frequency and 2x/week x 4 visits Duration These treatments will address the objective and functional deficits as defined above. The patient will be advanced safely and appropriately in order for the patient to progress towards his/her prior level of function. Additional exercises will be introduced and as well as a comprehensive home exercise program upon discharge, if needed, ?to ensure carryover of functional gains achieved in the clinic. This treatment plan has been reviewed and agreement upon by the patient.
--- NOTE | 2024-02-14 10:55 | OPREHPOC ---
Outpatient Therapy Plan of Care This is a Multidisciplinary Plan of Care that may contain components documented by all disciplines (PT, OT, and ST.) PT Problem 1 PT Problem #1 Knowledge Deficit PT Goal 1 Goal patient to demonstrate independence with EHP Target Visit 6 Progress Met PT Problem 2 PT Problem #2 Pain PT Goal 1 Goal 1. Patient reports highest pain at 2/10 -not met (4/10 at highest) 2. Patient to report ability to sleep with no disturbance due to L knee pain -met Target Visit 12 Progress Partially Met PT Problem 3 PT Problem #3 Impaired Range of Motion PT Goal 1 Goal Patient to demonstrate 0-120 deg of L knee active ROM to return to ambulation at PLOF Target Visit 12 Progress Met PT Problem 4 PT Problem #4 Impaired Strength PT Goal 1 Goal Patient to demonstrate 5/5 strength of the L knee to return to standing up from chair at completing house hold tasks at PLOF Target Visit 12 Progress Met PT Problem 5 PT Problem #5 Impaired Functional Mobil PT Goal 1 Goal 1. Patient to demonstrate <30% disability on LEFS -met 2. Patient to demonstrate ability to ambulate 1000 ' during 6 min walk test without AD -met 3. Patient to report ability to get into and out of the car with no L knee pain -met Target Visit 12 Progress Met
--- NOTE | 2024-02-14 10:58 | PTOPPROG ---
Assessment and note entered by Meredith Alcantara, PT Evaluation Information Assessment Status Progress Diagnosis L knee pain Onset 12/06/23 Subjective Information Maggy Story reports her left knee is doing well overall. She is able to drive, walk her dog, grocery shop, and go up and down short steps into and out of her home without difficulty. She is also able to step on/off curbs without difficulty. She continues to have stiffness and swelling in the knee and feels once that goes away she will be doing much better. She will see her surgeon on 02/18/24. Assessment PT Clinical Summary Maggy Story has completed 16 skilled PT visits following a left TKA performed on 12/06/23. She is reporting overall improvements with minimal pain noted except during stretching. She is able to drive, grocery shop, walk her dog, and go up and down curbs/steps without difficulty. She does still c/o stiffness and swelling. Objectively, she demonstrates improved left knee ROM, improved LE strength, and improved endurance. She is able to achieve 117 degrees left knee flexion AROM, 120 degrees left knee flexion AAROM, and 124 degrees left knee flexion PROM. She is able to achieve 0 degrees left knee extension both active and passive. She demonstrates good balance and is ambulating without an AD with no antalgia. She has met 88% of her PT goals. She will see her surgeon on 02/18/24 and we await further instruction. Plan of Care Interventions Electrical Stimulation,Gait Training,Hot Pack/Cold Pack,Manual Therapy,Patient/Caregiver Educati, Therapeutic Activities,Therapeutic Exercise PT Services Indicated Yes Treatment Frequency and Discharge unless new orders received Duration These treatments will address the objective and functional deficits as defined above. The patient will be advanced safely and appropriately in order for the patient to progress towards his/her prior level of function. Additional exercises will be introduced and as well as a comprehensive home exercise program upon discharge, if needed, ?to ensure carryover of functional gains achieved in the clinic. This treatment plan has been reviewed and agreement upon by the patient.
== END 2024-02-14 23:59 | disposition home or self-care (01) ==
LOC: CHSPT 09:28
DX: M25.562 Pain in left knee (principal); G89.29 Other chronic pain
CPT/HCPCS: 97016; 97110; 97112; 97140; 97150; 97161; 97530; 97750

== ENCOUNTER 2024-06-17 08:47 | Outpatient (RCR) | payer MEDICARE, SELFPAY ==
--- NOTE | 2024-06-17 10:02 | PTOPEVAL1 ---
Assessment and note entered by Vic Yanes Evaluation Information Assessment Status Evaluation Diagnosis s/p right TKA ICD-10 Condition Codes (PT) M25.561,Z47.89,Z47.1 Onset 05/22/24 Subjective Information Pt. reports that underwent a right TKA on 05/22/24. she reports she has been doing a [employer] bike for exercise and has not participated in therapy. She states that she has returned to driving short distances. She states that she is having trouble with sleeping at night due to pain. She reports she is doing no formal exercise. She states that she takes occasional Tramadol and ibuprofen for pain. She reports that prior to surgery to walked for exercise daily. She did undergo a left TKA in November. She reports that her goal is to improve her knee mobility and return to walking normal. Reported Pain Level Pain Score 3: Self Report Assessment PT Clinical Summary Pt. is an 84 year old female 3 weeks post right TKA. She presents with impaired gait, impaired ROM, impaired strength, edema and functional decline. Continued skilled PT is indicated in order to improve these areas to allow the pt. to achieve her goal of normal gait. Plan of Care Interventions Electrical Stimulation,Gait Training,Hot Pack/Cold Pack,Intermittent Compression,Manual Therapy, Neuro Re-education,Patient/Caregiver Educati, Therapeutic Activities,Therapeutic Exercise PT Services Indicated Yes Treatment Frequency and 2x/week x 10 visits Duration These treatments will address the objective and functional deficits as defined above. The patient will be advanced safely and appropriately in order for the patient to progress towards his/her prior level of function. Additional exercises will be introduced and as well as a comprehensive home exercise program upon discharge, if needed, ?to ensure carryover of functional gains achieved in the clinic. This treatment plan has been reviewed and agreement upon by the patient.
--- NOTE | 2024-06-17 10:02 | OPREHPOC ---
Outpatient Therapy Plan of Care This is a Multidisciplinary Plan of Care that may contain components documented by all disciplines (PT, OT, and ST.) PT Problem 1 PT Problem #1 Knowledge Deficit PT Goal 1 Goal / Goal Update Independent with a HEP focusing on strength and mobility. Target Visit 2 PT Problem 2 PT Problem #2 Impaired Range of Motion PT Goal 1 Goal / Goal Update Pt. will demonstrate 0-120 degrees right knee active ROM Target Visit 10 PT Problem 3 PT Problem #3 Impaired Strength PT Goal 1 Goal / Goal Update Pt. will demonstrate no lag with attempted SLR on right for 15 reps Pt. will demonstrate 5/5 gross right l.e. strength Target Visit 10 PT Problem 4 PT Problem #4 Impaired Functional Mobil PT Goal 1 Goal / Goal Update Pt. will navigate steps with reciprocal pattern. Pt. will ambulate for duration of 6 minutes without an AD demonstrating equal right and left stance time over distance of 1200'. Target Visit 10
--- NOTE | 2024-07-14 09:24 | PTOPEVAL1 ---
Assessment and note entered by Vic Yanes Evaluation Information Assessment Status Discharge Diagnosis s/p right TKA ICD-10 Condition Codes (PT) M25.561,Z47.89,Z47.1 Onset 05/22/24 Subjective Information Pt. reports she is doing great. She states that she is walking well and notes little to not pain. She reports that she has returned to performing all IADL's without limitation. She states that she will continue to exercise and is ready for discharge. Reported Pain Level Pain Score 0: Self Report Assessment PT Clinical Summary Pt. has met all goals established at the initial evaluation. She is encouraged to continue with her HEP and will be discharged from our care at this time. Plan of Care Interventions Electrical Stimulation,Gait Training,Hot Pack/Cold Pack,Intermittent Compression,Manual Therapy, Neuro Re-education,Patient/Caregiver Educati, Therapeutic Activities,Therapeutic Exercise PT Services Indicated No Treatment Frequency and D/C from PT to an independent HEP. Duration These treatments will address the objective and functional deficits as defined above. The patient will be advanced safely and appropriately in order for the patient to progress towards his/her prior level of function. Additional exercises will be introduced and as well as a comprehensive home exercise program upon discharge, if needed, ?to ensure carryover of functional gains achieved in the clinic. This treatment plan has been reviewed and agreement upon by the patient.
== END 2024-07-14 08:30 | disposition home or self-care (01) ==
LOC: CHSPT 08:47
DX: M25.561 Pain in right knee (principal); G89.29 Other chronic pain
CPT/HCPCS: 97016; 97110; 97150; 97161; 97530